=== PATIENT | female | born 1990 | race Caucasian/White ===

== ENCOUNTER 2017-08-03 11:03 | Outpatient (CLI) | payer OTHER ==
[2017-08-03 11:36] LABS: Hemoglobin 13.1 g/dL (12.0-16.0); Mean Corpuscular Hemoglobin 28.9 pg (27.0-31.0); Mean Corpuscular Volume 87.4 fl (81.0-99.0); Mean Platelet Volume 7.6 fL (7.4-10.4); Platelet Count 350 thou/uL (130-400); RBC Distribution Width 11.9 % (11.5-14.5); Red Blood Cell (RBC) Count 4.55 mill/uL (4.20-5.40)
== END 2017-08-03 11:04 | disposition home or self-care (01) ==
LOC: LABBT 11:03
PROVIDERS: ATTEND Obstetrics & Gynecology
DX: Z01.812 Encounter for preprocedural laboratory examination (principal); O02.1 Missed abortion
CPT/HCPCS: 85027; 86850; 86900; 86901

== ENCOUNTER → 2017-08-07 | Day surgery (SDC) | payer OTHER ==
[2017-08-03 11:35] VITALS: BMI 36.6
--- NOTE | 2017-08-03 13:23 | HP ---
Date of scheduled surgery will be 08/07/2017. HISTORY OF PRESENT ILLNESS: Ms. Massey is a 27-year-old white female A1 with prior s ection and previous spontaneous miscarriage, who is currently 14 weeks' gestation with EDC of 018. She has been having a complication of continue for trimester bleeding and was seen in my office on 08/03/2017 for this. Unfortunately, the ultrasound today confirmed a demise at 1 1-12 weeks' gestation. Cervix is closed. She has no cramping at this time. PAST MEDICAL HISTORY: Negative. PAST SURGICAL HISTORY: section, right ACL repair, tonsillectomy and adenoidectomy. FAMILY HISTORY: Noncontributory. CURRENT LABORATORY DATA: A positive, antibody screen negative. HIV, RPR, hepatitis B surface antige n negative. Ultrasound is noted on 08/03/2017, she has a crown to rump length consistent with 11 wee ks 2 days with no cardiac activity. PHYSICAL EXAMINATION: VITAL SIGNS: The patient's blood pressure is 120/72, weight 225 pounds, and pulse regular at 76. HEENT: Within normal limits. CHEST: Clear to auscultation. HEART: Regular rate and rhythm. S1, S2 heart sounds, no murmurs, rubs or gallops. ABDOMEN: Soft, nontender, nondistended. No palpable masses. PELVIC: Vulva and vagina had scant bleeding. Cervix is closed. Uterus is 12-week size and nontende r. Adnexa were nontender with no masses. ASSESSMENT AND PLAN: It is 11-12 week demise, prior section. Plan for suction D and C in 08/07/2017. The patient began bleeding heavily over the weekend. She was instructed to go the emergency room for suction evacuation then. Risks and benefits of procedure discussed in detail. Sh e is set for 08/07/2017.
[~2017-08-07] MED LIST: CEFAZOLIN/Water 2 GM/20 ML SYRINGE ONE; Dexamethasone 20 MG/5 ML VIAL ONE; Fentanyl 100 MCG/2 ML VIAL ONE; Ketorolac Tromethamine 30 MG/ML VIAL ONE; Lidocaine 1% PF 5 ML VIAL ONE; Midazolam HCl 2 mg/2 ml Vial ONE; Ondansetron HCl/PF 4 MG/2 ML Vial ONE; PROPOFOL 200 MG/20 ML VIAL ONE; Succinylcholine Chloride 20 MG/ML 10 ml SYRINGE FS ONE
--- NOTE | 2017-08-07 13:06 | OP ---
DATE OF PROCEDURE: 08/07/2017 PREOPERATIVE DIAGNOSES: 1. A 27-year-old white female G3, who is presently noted to have an 11-12 week embryonic demis e. 2. A positive blood type. 3. Reports passage of the sac with embryo in the past 24 hours. 4. Incomplete . POSTOPERATIVE DIAGNOSES: 1. A 27-year-old white female G3, who is presently noted to have an 11-12 week embryonic demis e. 2. A positive blood type. 3. Reports passage of the sac with embryo in the past 24 hours. 4. Incomplete . PROCEDURE: Suction D&C. SURGEON: Blaire Jimenez M.D. ANESTHESIA: General. ESTIMATED BLOOD LOSS: 100 mL. COMPLICATIONS: None. ANTIBIOTICS: Two grams Ancef. FINDINGS: Uterus is 8-10 weeks' size evacuated of remaining placental tissue products of conception . COMPLICATIONS: None. PATHOLOGY: Pathology is products of conception. DISPOSITION: Recovery room then discharge from day stay. DESCRIPTION OF OPERATIVE PROCEDURE: The patient previously received informed consent in regard to [facility]. She was taken back to the operating room where she received general endotracheal anesthetic a gent without complications, placed in dorsal lithotomy position, prepped and draped in usual sterile fashion with the use of Andrew stirrups. In and out catheterization of bladder was performed. A side arm speculum was placed in the vagina. Anterior lip of cervix grasped with single tooth tenaculum. Uterus sounded to 10 cm. Uterine cervix was easily dilated to size 20 Lacey dilator and an 8 mm curv ed suction curet was placed through the cervical os into the uterine cavity. The suction was carried out at 45/50 mmHg with remaining removal of the placental tissue that remained. Sharp curettage aga in followed with gritty texture noted throughout the cavity confirming proper complete evacuation of the tissue. Again, suction was carried out remaining blood clots. There was no active ongoing supra cervical bleeding noted. Tenaculum was removed. Pressure with a sponge stick was placed at tenaculu sites for hemostasis. The speculum was removed. The patient was awakened from anesthesia and scherer sferred to the recovery room in stable condition. The plan is for discharge later from day stay with follow up in 2 weeks.
== END ==
LOC: SDC 09:59
PROVIDERS: ATTEND Obstetrics & Gynecology
PROC: 10D17Z9 Manual Extraction of Products of Conception, Retained, Via Natural or Artificial Opening (ICD-10-PCS; principal; 2017-08-07)
DX: O03.4 Incomplete spontaneous abortion without complication (principal); O36.4XX0 Maternal care for intrauterine death, not applicable or unspecified; Z79.899 Other long term (current) drug therapy; Z98.891 History of uterine scar from previous surgery; Z87.59 Personal history of other complications of pregnancy, childbirth and the puerperium
CPT/HCPCS: 88305; J0131; J1100; J1885; J2001; J2250; J2405; J2704; J3010

== ENCOUNTER 2018-08-25 04:34 | Inpatient (IN) | payer OTHER ==
[2018-10-20] MEDS ORDERED: Bupivacaine PF 0.5% 30 ML VIAL ONE (10:00)
[2018-10-20] MEDS ORDERED: Bupivacaine 0.25% HCL 30 ML VIAL ONE (10:00)
[2018-10-20] MEDS ORDERED: Lidocaine 1% (PF) 30 ML VIAL SC PRN (11:18)
[2018-10-20] MEDS ORDERED: Promethazine HCl 25 MG/ML VIAL IM PRN ×2 (11:18→15:23)
[2018-10-20] MEDS ORDERED: NS w/ Oxytocin 10 units 500 ML IV SCH (11:18)
[2018-10-20] MEDS ORDERED: Butorphanol Tartrate 1 MG/ML VIAL SLOW IVP PRN (11:18)
[2018-10-20] MEDS ORDERED: Acetaminophen 500 MG TAB PO PRN (11:18)
[2018-10-20] MEDS ORDERED: NS / Oxytocin 40 units/1000ml 1,000 ML IV PRN (11:18)
[2018-10-20 11:34] VITALS: BMI 44.6
[2018-10-20] MEDS: Lactated Ringer's 1,000 ML IV SCH ×3 (11:54→19:30)
[2018-10-20 12:18] LABS: Hemoglobin 12.4 g/dL (12.0-16.0); Mean Corpuscular HGB CONC 33.2 g/dL (32.0-36.0); Mean Corpuscular Hemoglobin 28.4 pg (27.0-31.0); Mean Corpuscular Volume 85.5 fL (78.0-98.0); Mean Platelet Volume 8.7 fL (7.4-10.4); Platelet Count 292 thou/uL (130-400); RBC Distribution Width 16.6 % (11.5-14.5); Red Blood Cell (RBC) Count 4.36 mill/uL (4.20-5.40); White Blood Cell (WBC) Count 11.9 thou/uL (4.8-10.8)
[2018-10-20 13:00] LABS: HBSAg Index 0.48 S/CO (0-0.99); Hep B Surf Ag Non-Reactive S/CO (NonReactive); Syphilis Antibody Nonreactive (Nonreactive); Syphilis Antibody Index 0.03 S/CO (<1.00 Non-Reactive)
[2018-10-20] MEDS ORDERED: Fentanyl 4 mcg/Bup 0.1% Cadd 100 ML ONE (14:17)
[2018-10-20] MEDS ORDERED: Acetaminophen 325 MG TAB PO PRN (15:23)
[2018-10-20] MEDS ORDERED: Lactated Ringer's 500 ML IV PRN (15:23)
[2018-10-20] MEDS ORDERED: Naloxone HCl 0.4 mg/ml Vial IVP PRN ×2 (15:23)
[2018-10-20] MEDS ORDERED: diphenhydrAMINE 50 MG/ML VIAL IVP PRN (15:23)
[2018-10-20] MEDS ORDERED: ePHEDrine/0.9% NaCl/PF SYRINGE 50 mg/10 ml SLOW IVP PRN (15:23)
[2018-10-20] MEDS ORDERED: Ondansetron PF 4 MG/2 ML Vial IVP PRN (15:23)
[2018-10-20] MEDS ORDERED: Communication Order-Pharmacy FS SCH (15:30)
[2018-10-20] MEDS: Ondansetron PF 4 MG/2 ML Vial IVP PRN (16:32)
[2018-10-20] MEDS: Fentanyl 4 mcg/Bupivacaine 0.1% Cassette 100 ML EPIDURAL SCH (22:14)
[2018-10-21] MEDS: Lactated Ringer's 1,000 ML IV SCH ×2 (02:25→06:22)
[2018-10-21] MEDS: Ondansetron PF 4 MG/2 ML Vial IVP PRN (04:34)
[2018-10-21] MEDS ORDERED: Fentanyl 4 mcg/Bup 0.1% Cadd 100 ML ONE (05:35)
[2018-10-21] MEDS: Fentanyl 4 mcg/Bupivacaine 0.1% Cassette 100 ML EPIDURAL SCH (05:39)
[2018-10-21] MEDS: Gentamicin Sulfate 80 MG in Premix Bag 1 BAG IVPB SCH ×2 (07:53→14:04)
--- NOTE | 2018-10-21 10:03 | PDOC.OPDEL ---
OB Operative/Delivery Note Delivery Dr/Surgeon: Tony Pre-Delivery Diagnosis: medically indicated induction, other Weeks gestation: 40 Anesthesia: epidural - Findings A Sex: male - 1 min: 8 - 5 min: 9 - Additional Findings/Plan Placenta delivered: spontaneous Repaired Obstetrical Laceration: 2nd degree (Successful vaginal delivery after section..Labor induction with [place]'s [place]... Chorioamnionitis - treated with AMpicillin/gentamicin..) Estimated blood loss: QBL 450 ml
[2018-10-21] MEDS ORDERED: diphenhydrAMINE 25 MG CAP PO PRN (10:04)
[2018-10-21] MEDS ORDERED: Benzocaine-Menthol 82.5 ML CAN TOP PRN (10:04)
[2018-10-21] MEDS ORDERED: Milk Of Magnesia 30 ML UDCUP PO PRN (10:04)
[2018-10-21] MEDS ORDERED: Bisacodyl 10 MG SUPP PR PRN (10:04)
[2018-10-21] MEDS ORDERED: Misoprostol 200 MCG TAB VAG PRN (10:04)
[2018-10-21] MEDS ORDERED: Lanolin Ointment 7 GM TUBE TOP PRN (10:04)
[2018-10-21] MEDS ORDERED: Preparation H Ointment 28 GM TUBE PR PRN (10:04)
[2018-10-21] MEDS ORDERED: NS / Oxytocin 40 units/1000ml 1,000 ML IV SCH (10:15)
[2018-10-21] MEDS: Ibuprofen 800 MG TAB PO SCH ×2 (12:55→22:38)
[2018-10-21] MEDS ORDERED: Gentamicin 80 MG/2 ML VIAL IM SCH (14:00)
[2018-10-21] MEDS: traMADol HCl 50 MG TAB PO PRN (14:21)
[2018-10-21] MEDS: Ampicillin 2 GM in Sodium Chloride 0.9% 100 ML IVPB SCH ×3 (14:22→23:24)
[2018-10-21] MEDS: Adacel (T-DAP) 0.5 ML SYRINGE IM ONE ×2 (15:09→17:59)
[2018-10-21] MEDS: Ferrous Sulfate 325 MG TAB PO SCH (17:11)
[2018-10-21] MEDS: Docusate Calcium (SURFAK) 240 MG CAP PO SCH (22:38)
[2018-10-22] MEDS: Gentamicin Sulfate 80 MG in Premix Bag 1 BAG IVPB SCH (01:16)
[2018-10-22] MEDS: traMADol HCl 50 MG TAB PO PRN ×3 (02:40→23:06)
[2018-10-22] MEDS: Ampicillin 2 GM in Sodium Chloride 0.9% 100 ML IVPB SCH (05:08)
[2018-10-22] MEDS: Ibuprofen 800 MG TAB PO SCH ×3 (05:11→21:26)
--- NOTE | 2018-10-22 07:37 | PDOC.PP ---
Post Progress Note Post Day #: 1 PO intake tolerated: yes Flatus: yes Ambulation: yes Vital Signs (12 hours) Temp Pulse Resp BP Pulse Ox 10/22/18 05:35 98.3 F 70 16 104/64 10/21/18 23:20 97.9 F 62 16 104/51 L 10/21/18 22:00 98.0 F 60 16 100/55 L 98 Weight Weight 268 lb - Physical Examination Abdominal: + bowel sounds, lochia, no distention, appropriately TTP Result Diagrams: 10/20/18 11:32 Additional Labs: Post Labs Blood Type A POSITIVE 10/20/18 11:32 Hep Bs Antigen Non-Reactive S/CO (NonReactive) 10/20/18 11:32 - Assessment/Plan Post day 1--...Afebrile3 >24 hours. Will d/c antibiotics for presumed chorio.. D/c in AM when baby is cleared for discharge.
[2018-10-22] MEDS: Docusate Calcium (SURFAK) 240 MG CAP PO SCH ×2 (09:42→21:25)
[2018-10-22] MEDS: Ferrous Sulfate 325 MG TAB PO SCH ×2 (09:42→18:53)
[2018-10-22] MEDS: Prenatal Vitamin 1 TAB PO SCH (09:42)
[2018-10-23] MEDS: Ibuprofen 800 MG TAB PO SCH ×2 (05:10→14:19)
--- NOTE | 2018-10-23 07:32 | PDOC.PP ---
Post Progress Note Post Day #: 2 PO intake tolerated: yes Flatus: yes Ambulation: yes Vital Signs (12 hours) Temp Pulse Resp BP Pulse Ox 10/22/18 21:30 98.3 F 64 16 117/59 L 97 Weight Weight 268 lb - Physical Examination Abdominal: + bowel sounds, lochia, no distention, appropriately TTP Result Diagrams: 10/20/18 11:32 Additional Labs: Post Labs Blood Type A POSITIVE 10/20/18 11:32 Hep Bs Antigen Non-Reactive S/CO (NonReactive) 10/20/18 11:32 - Assessment/Plan Post day 2 --doing well. D/c home. F/u in 6 weeks.
[2018-10-23 08:23] VITALS: BP 117/60; TEMP 97.7
[2018-10-23] MEDS: Docusate Calcium (SURFAK) 240 MG CAP PO SCH (09:17)
[2018-10-23] MEDS: Ferrous Sulfate 325 MG TAB PO SCH (09:17)
[2018-10-23] MEDS: Prenatal Vitamin 1 TAB PO SCH (09:17)
[2018-10-23] MEDS: traMADol HCl 50 MG TAB PO PRN (09:23)
== END 2018-10-23 15:15 | disposition home or self-care (01) | DRG 805 ==
LOC: L&D 10-20 10:54 → 3SW 10-21 13:09
PROVIDERS: ADMIT Obstetrics & Gynecology; ATTEND Obstetrics & Gynecology
PROC: 10E0XZZ Delivery of Products of Conception, External Approach (ICD-10-PCS; principal; 2018-10-21)
PROC: 0KQM0ZZ Repair Perineum Muscle, Open Approach (ICD-10-PCS; 2018-10-21)
PROC: 0U7C7ZZ Dilation of Cervix, Via Natural or Artificial Opening (ICD-10-PCS; 2018-10-21)
DX: O48.0 Post-term pregnancy (principal); O41.1230 Chorioamnionitis, third trimester, not applicable or unspecified; Z37.0 Single live birth; Z3A.40 40 weeks gestation of pregnancy; O70.1 Second degree perineal laceration during delivery
CPT/HCPCS: 36415; 51702; 85027; 86780; 86850; 86900; 86901; 87340; 88307; C1726; J0290; J1200; J1580; J2001; J2405; J2550; J2590; J3490; S0020